=== PATIENT | female | born 1945 | race Caucasian/White ===

== ENCOUNTER 2023-02-03 07:50 | Day surgery (SDC) | payer MEDICARE, OTHER ==
[~2023-02-03 07:50] MED LIST: Lactated Ringers 1,000 ML IV SCH
[2023-02-03] MEDS ORDERED: fentaNYL 50 MCG/ML SDV ONE (08:23)
[2023-02-03] MEDS ORDERED: Propofol 200 MG/20 ML SDV ONE ×2 (08:23→10:42)
== END 2023-02-03 09:43 | disposition home or self-care (01) ==
LOC: JP.SDS 07:50
PROVIDERS: ATTEND Student in an Organized Health Care Education/Training Program
DX: Z12.11 Encounter for screening for malignant neoplasm of colon (principal); K57.30 Diverticulosis of large intestine without perforation or abscess without bleeding; I87.2 Venous insufficiency (chronic) (peripheral); E66.9 Obesity, unspecified; Z91.048 Other nonmedicinal substance allergy status
CPT/HCPCS: G0121; J2704; J3010; J7120